=== PATIENT | female | born 1950 | race Asian ===

== ENCOUNTER 2016-07-11 11:00 | Outpatient (CLI) | payer MEDICARE, OTHER | END 2016-07-11 11:01 | disposition home or self-care (01) | DX: E11.9 Type 2 diabetes mellitus without complications (principal); E78.5 Hyperlipidemia, unspecified ==

== ENCOUNTER 2016-09-06 13:53 | Outpatient (CLI) | payer MEDICARE, OTHER | END 2016-09-06 13:54 | disposition home or self-care (01) | DX: Z12.31 Encounter for screening mammogram for malignant neoplasm of breast (principal) ==

== ENCOUNTER 2016-11-21 11:05 | Outpatient (CLI) | payer MEDICARE, OTHER ==
[2016-11-21 19:41] LABS: HEMOGLOBIN A1C 0.88 g/dL
[2016-11-21 19:45] LABS: CALCIUM 9.3 mg/dL (8.5-10.3); CREATININE 0.7 mg/dL (0.4-1.0); POTASSIUM 3.3 mmol/L (3.5-5.0)
== END 2016-11-21 11:06 | disposition home or self-care (01) ==
LOC: LAB.WCP 11:05
PROVIDERS: ATTEND Family Medicine
DX: E11.9 Type 2 diabetes mellitus without complications (principal)
CPT/HCPCS: 36415; 80048; 83036

== ENCOUNTER 2016-11-30 14:54 | Outpatient (CLI) | payer MEDICARE, OTHER ==
--- NOTE | 2016-12-01 11:28 | Ultrasound Report ---
EXAM: PELVIC ULTRASOUND EXAM DATE: 11/30/2016 04:16 PM. CLINICAL HISTORY: PELVIC PAIN. COMPARISON: None. TECHNIQUE: Realtime transabdominal pelvic scan performed to identify the uterus and adnexa and as an overview of other pelvic structures, followed by transvaginal scan to provide greater detail of the u terus and adnexa, with static image documentation. FINDINGS: Uterus: 4.6 x 3.5 x 2.5 cm. Anteverted position. Normal overall size and echotexture. Masses: None. Endometrium: 3.7 mm. Normal. Cervix: Unremarkable. Right Ovary: 1.6 x 1.3 x 1.2 cm. Normal echotexture and blood flow. Left Ovary: Not well-seen. No obvious masses seen in the left adnexa. Free Fluid: Small free fluid in the pelvic cul-de-sac. Other: None. IMPRESSION: Limited evaluation secondary to nonvisualization of left ovary. Small free fluid in the p elvic cul-de-sac, otherwise unremarkable exam. [facility] Referring Provider Line: [phone] SITE ID: [id number]
== END 2016-11-30 14:55 | disposition home or self-care (01) ==
LOC: DI 14:54
PROVIDERS: ATTEND Family Medicine
DX: R10.2 Pelvic and perineal pain (principal)
CPT/HCPCS: 76830; 76856

== ENCOUNTER 2016-12-10 10:10 | Outpatient (CLI) | payer MEDICARE, OTHER ==
[2016-12-10] MEDS ORDERED: BARIUM SULFATE 135 ML BOTTLE PO ONE (10:51)
[2016-12-10] MEDS ORDERED: BARIUM SULFATE 176 GM BOTTLE PO ONE (10:51)
--- NOTE | 2016-12-10 12:48 | XRAY Report ---
DOUBLE CONTRAST UPPER GI: 12/10/2016 CLINICAL INDICATION: Reflux. FINDINGS: Initial auto body painter view of the abdomen demonstrates a normal bowel gas pattern. The esophagus i s normal in caliber and contractility. No esophageal ulceration, mass lesion, or stricturing is prese nt. A small sliding hiatal hernia is noted, which produced gastroesophageal reflux during the course of the study. The stomach, otherwise, demonstrates a normal fold pattern. No gastric ulceration or ma ss lesion is identified. The duodenal cap distends normally. The duodenal C-loop is unremarkable. A 1 3 mm barium pill passed freely through the esophagus and into the stomach. IMPRESSION: SMALL SLIDING HIATAL HERNIA, PRODUCING REFLUX. NO EVIDENCE OF ULCERATION OR MASS LESION. FLUOROSCOPY TIME: 3 MINUTES 38 SECONDS; 23 SPOT IMAGES OBTAINED. JOB #: [id number] EXT JOB #:[id number]
== END 2016-12-10 10:11 | disposition home or self-care (01) ==
LOC: DI 10:10
PROVIDERS: ATTEND Family Medicine
DX: K44.9 Diaphragmatic hernia without obstruction or gangrene (principal); K21.9 Gastro-esophageal reflux disease without esophagitis
CPT/HCPCS: 74247; A9270

== ENCOUNTER 2017-03-16 13:37 | Emergency (ER) | payer MEDICARE, OTHER ==
[2017-03-16] MEDS ORDERED: TETANUS/DIPHTHERIA/PERTUSSIS 0.5 ML SYRINGE IM ONE ×2 (13:58→14:13)
[2017-03-16] MEDS ORDERED: cephALEXin 250 MG CAPSULE PO STA (13:58)
--- NOTE | 2017-03-16 14:00 | ED Physician Documentation ---
PD HPI UPPER EXT INJURY - Stated complaint Stated Complaint: L THUMB INJURY - Chief complaint Chief Complaint: Wound - History obtained from History obtained from: Patient - History of Present Illness Location: Other (She sustained a laceration on her left thumb 5 days ago from a castings trimmer and now has a little bit of increased pain and some redness and swelling. 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 HEENT: Cataracts - Present Medications Home Medications: Ambulatory Orders Medication Instructions Recorded Confirmed Cephalexin [Keflex] 500 mg PO QID #28 capsule 03/16/17 - Allergies Allergies/Adverse Reactions: Allergies Allergy/AdvReac Type Severity Reaction Status Date / Time codeine [Codeine] Allergy Intermediate Nausea Verified 03/16/17 13:48 oxycodone HCl * [From Tylox] AdvReac Mild Nausea Verified 03/16/17 13:48 - Social History Does the pt smoke?: No Smoking Status: Never smoker Does the pt drink ETOH?: Yes Does the pt have substance abuse?: No - Immunizations Immunizations are current?: No PD ED PE NORMAL - Vitals Vital signs reviewed: Yes - General General: Alert and oriented X 3, No acute distress - Extremities Extremities: Other (She has a 1 cm laceration on the pulp of the left thumb with mild surrounding cellulitis but no limitation in range of motion or neurovascular status.) - Neuro Neuro: Alert and oriented X 3, Normal speech - Psych Psych: Normal mood, Normal affect Results - Vitals Vitals: Vital Signs - 24 hr 03/16/17 13:45 Temperature 36.3 C L Heart Rate 80 Respiratory 14 Rate Blood Pressure 128/80 O2 Saturation 100 Oxygen O2 Source Room air Departure - Departure Disposition: 01 Home, Self Care Clinical Impression: Infected laceration Condition: Good Record reviewed to determine appropriate education?: Yes Instructions: ED Laceration Repair Infec Prescriptions: Cephalexin [Keflex] 500 mg PO QID #28 capsule Comments: You can wash it briefly with soap and water and then apply a dry Band-Aid after patting it dry. Return if redness or swelling worsens.
[2017-03-16] MEDS ORDERED: cephALEXin 250 MG CAPSULE PO ONE (14:13)
[2017-03-16 14:31] VITALS: BP 116/74
[2017-03-16] MEDS ORDERED: SULFAMETH/TRIMETH DS 800/160 MG TABLET PO ONE (15:14)
[2017-03-16] MEDS ORDERED: PHENAZOPYRIDINE 100 MG TABLET PO ONE (15:14)
== END 2017-03-16 14:28 | disposition home or self-care (01) ==
LOC: ED 13:37
DX: S61.012A Laceration without foreign body of left thumb without damage to nail, initial encounter (principal); L03.012 Cellulitis of left finger; W29.3XXA Contact with powered garden and outdoor hand tools and machinery, initial encounter; Z23 Encounter for immunization; E11.9 Type 2 diabetes mellitus without complications
CPT/HCPCS: 90471; 90715; 99283; A9270

== ENCOUNTER 2017-07-11 11:50 | Outpatient (CLI) | payer MEDICARE, OTHER ==
[2017-07-11 19:16] LABS: BASOPHILS % (AUTO) 0.4 %; EOSINOPHILS # (AUTO) 0.3 10^3/uL (0.0-0.7); EOSINOPHILS % (AUTO) 2.7 %; HGB - HEMOGLOBIN 14.2 g/dL (12.0-16.0); LYMPHOCYTES # (AUTO) 2.5 10^3/uL (1.5-3.5); MEAN CORPUSCULAR HEMOGLOBIN 29.7 pg (27.0-31.0); MEAN CORPUSCULAR HGB CONC 33.2 g/dL (32.0-36.0); MEAN CORPUSCULAR VOLUME 89.2 fL (81.0-99.0); MEAN PLATELET VOLUME 7.3 fL (7.9-10.8); MONOCYTES # (AUTO) 1.1 10^3/uL (0.0-1.0); MONOCYTES % (AUTO) 10.5 %; NEUTROPHILS # (AUTO) 6.2 10^3/uL (1.5-6.6); NEUTROPHILS % (AUTO) 61.4 %; PLT - PLATELET COUNT 263 10^3/uL (130-450); RED BLOOD COUNT 4.79 10^6/uL (4.20-5.40); RED CELL DISTRIBUTION WIDTH 12.6 % (12.0-15.0); WHITE BLOOD COUNT 10.1 x10^3/uL (4.8-10.8)
[2017-07-11 19:32] LABS: ALBUMIN 4.6 g/dL (3.2-5.5); ALBUMIN/GLOBULIN RATIO 1.1 (1.0-2.2); ALKALINE PHOSPHATASE 65 IU/L (42-121); ALT ALANINE AMINOTRANSFERASE 11 IU/L (10-60); AST ASPARTATE AMINOTRANSFERASE 25 IU/L (10-42); BILIRUBIN,TOTAL 0.6 mg/dL (0.2-1.0); BUN - BLOOD UREA NITROGEN 15 mg/dL (6-20); CALCIUM 9.2 mg/dL (8.5-10.3); CARBON DIOXIDE - CO2 27 mmol/L (21-32); CHLORIDE 95 mmol/L (101-111); CHOL/HDL RATIO 2.6 (<4.4); CHOLESTEROL 101 mg/dL; CREATININE 0.8 mg/dL (0.4-1.0); GFR - MDRD 71 (>89); GLUCOSE 194 mg/dL (70-100); HDL CHOLESTEROL 39 mg/dL; LDL CHOLESTEROL,CALCULATED 34 mg/dL; LDL/HDL RATIO 0.9 (<4.4); SODIUM 132 mmol/L (135-145); TOTAL PROTEIN 8.9 g/dL (6.7-8.2); VLDL CHOLESTEROL 28 mg/dL
[2017-07-11 19:33] LABS: THYROID STIMULATING HORMONE 2.72 uIU/mL (0.34-5.60)
[2017-07-11 20:02] LABS: HB2 TOTAL 15.5 g/dL; HEMOGLOBIN A1C 0.91 g/dL; HEMOGLOBIN A1C % 7.5 % (4.6-6.2)
== END 2017-07-11 11:51 | disposition home or self-care (01) ==
LOC: LAB.WCP 11:50
PROVIDERS: ATTEND Family Medicine
DX: E11.40 Type 2 diabetes mellitus with diabetic neuropathy, unspecified (principal)
CPT/HCPCS: 36415; 80053; 80061; 82043; 82607; 83036; 84443; 85025

== ENCOUNTER 2017-09-17 14:09 | Outpatient (CLI) | payer MEDICARE, OTHER ==
[2017-09-17 14:29] LABS: CREATININE 0.7 mg/dL (0.4-1.0)
[2017-09-17] MEDS ORDERED: IOPAMIDOL-300 100 ML VIAL ONE (15:28)
[2017-09-17] MEDS ORDERED: IOPAMIDOL-300 100 ML VIAL IVP ONE (15:40)
--- NOTE | 2017-09-18 13:42 | CT Report ---
EXAM: CT SOFT TISSUE NECK WITH CONTRAST. EXAM DATE: 09/17/2017 03:40 PM. HISTORY: Neck mass. Patient reports left parotid swelling. COMPARISONS: None available. TECHNIQUE: Routine soft tissue neck CT protocol. Reconstructions: Coronal and sagittal. IV contrast: 80 cc Isovue-370. In accordance with CT protocol optimization, one or more of the following dose reduction techniques w ere utilized for this exam: automated exposure control, adjustment of mA and/or KV based on patient s ize, or use of iterative reconstructive technique. FINDINGS: The left parotid gland enhances to a greater degree than the right parotid gland. This involves the s uperficial and deep lobe which are enlarged relative to the right parotid gland. A discrete fluid col lection or mass is not identified in the left parotid gland. No significant inflammatory change is pr esent in the fat adjacent to the left parotid gland. The right parotid gland and both submandibular glands have a normal CT appearance. No calcification or mass is identified in the floor of mouth. The epiglottis is not thickened. The epiglottic folds are symmetric. No mass is present in the nasoph arynx. The parapharyngeal fat is symmetric. No subglottic stenosis is present. The thyroid gland is not enlarged. 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 No bulky lymphadenop athy is seen in the visualized upper mediastinum. Nonenlarged lymph nodes are seen bilaterally along the internal jugular chain. A 5 mm short axis lymp h node is seen on the right in the lower neck on image 91 posterior to the sternocleidomastoid muscle . Nonenlarged posterior triangle lymph nodes are seen bilaterally. The lacrimal glands are symmetric in size. No mass is present in either orbit. No enhancing mass is identified in the brain parenchyma. A posterior protrusion of disk and osteophyte is seen at C6-C7. No suspicious lytic or blastic region is seen in the cervical vertebral bodies. Scattered facet hyper trophy is present. Right frontal sinus, bilateral ethmoid air cell and bilateral maxillary sinus mucosal thickening is p resent. No suspicious spiculated mass is seen in either lung apex. IMPRESSION: 1. The left parotid gland is diffusely enlarged and enhances to a greater degree relative to the righ t parotid gland. This could reflect parotitis. No abscess or mass is identified in the left parotid g land. 2. Paranasal sinus mucosal thickening is seen [facility] Referring Provider Line: [phone] SITE ID: [id number]
== END 2017-09-17 14:10 | disposition home or self-care (01) ==
LOC: LAB 14:09 → DI 14:10
PROVIDERS: ATTEND Otolaryngology Facial Plastic Surgery
DX: K11.1 Hypertrophy of salivary gland (principal); K11.23 Chronic sialoadenitis; R22.1 Localized swelling, mass and lump, neck
CPT/HCPCS: 36415; 70491; 82565; Q9967

== ENCOUNTER 2018-05-13 13:11 | Outpatient (CLI) | payer MEDICARE, OTHER ==
--- NOTE | 2018-05-14 11:29 | DEXA Report ---
Reason: POST MENOPAUSAL Procedure Date: 05/13/2018 Accession Number: [id number] / [id number] Procedure: DEX - Dexa Spine and/or Hip CPT Code: FULL RESULT: EXAM: Dexa Spine and/or Hip DATE: 05/13/2018 1:40 PM CLINICAL HISTORY: POST MENOPAUSAL TECHNIQUE: Dual energy x-ray absorptiometry (DXA) was performed on a HOTEL Top-Level Domain System. Regions measured are the AP Spine, femoral neck, and if needed forearm. COMPARISON: None. In accordance with the International Society for Clinical Densitometry (ISCD) guidelines, data from previous exams may be reanalyzed using current recommendations and techniques. This is done to allow a more accurate basis for comparison with the current study. FINDINGS: The data for the lumbar spine is as follows: BMD (g/cm/cm) T-SCORE Z-SCORE REGION L1 0.950 -1.5 0.2 L2 1.082 -1.0 0.7 L3 1.052 -1.2 0.4 L4 1.133 -0.6 1.1 TOTAL 1.060 -1.0 0.7 NOTE: All evaluable vertebrae are used for classification The data for the hip is as follows: BMD (g/cm/cm) T-SCORE Z-SCORE REGION Neck 0.928 -0.8 0.9 TOTAL 0.984 -0.2 1.2 NOTE: The femoral neck or total proximal femur, whichever is lowest, is used for classification. IMPRESSION: THE WHO CLASSIFICATION BASED ON THE INTERNATIONAL REFERENCE STANDARD IS NORMAL. THE FRACTURE RISK IS NOT INCREASED. RECOMMENDATION: Patients with diagnosis of osteoporosis or osteopenia should have regular bone mineral density assessment. For those eligible for Medicare, routine testing is allowed once every 2 years. Testing frequency can be increased for patients who have rapidly progressing disease or for those who are receiving medical therapy to restore bone mass. COMMENT: World Health Organization (WHO) definitions for osteoporosis and osteopenia: NORMAL BMD: T-score at -1.0 or higher, fracture risk is low OSTEOPENIA BMD: T-score between -1.0 and -2.5, fracture risk is increased. OSTEOPOROSIS BMD: T-score at -2.5 or lower, fracture risk is high. National Osteoporosis Foundation recommends: 1. Obtain adequate dietary calcium (at least 1200 mg per day) and vitamin D (400-800 international units per day). 2. Participate, as appropriate, in regular weightbearing and muscle-strengthening exercise. 3. Avoid tobacco use and reduce alcohol and caffeine intake. 4. For more detailed information see the website at www.NOF.org.
== END 2018-05-13 13:12 | disposition home or self-care (01) ==
LOC: DI 13:11
PROVIDERS: ATTEND Family Medicine
DX: Z78.0 Asymptomatic menopausal state (principal); Z13.820 Encounter for screening for osteoporosis
CPT/HCPCS: 77080

== ENCOUNTER 2018-09-23 11:08 | Outpatient (CLI) | payer MEDICARE, OTHER ==
[2018-09-23 19:10] LABS: BASOPHILS % (AUTO) 0.9 %; EOSINOPHILS # (AUTO) 0.2 10^3/uL (0.0-0.7); EOSINOPHILS % (AUTO) 3.6 %; LYMPHOCYTES # (AUTO) 2.1 10^3/uL (1.5-3.5); LYMPHOCYTES % (AUTO) 36.9 %; MEAN CORPUSCULAR HEMOGLOBIN 29.9 pg (27.0-31.0); MEAN CORPUSCULAR HGB CONC 32.9 g/dL (32.0-36.0); MEAN CORPUSCULAR VOLUME 90.8 fL (81.0-99.0); MEAN PLATELET VOLUME 6.9 fL (7.9-10.8); MONOCYTES # (AUTO) 0.4 10^3/uL (0.0-1.0); MONOCYTES % (AUTO) 7.7 %; NEUTROPHILS # (AUTO) 2.9 10^3/uL (1.5-6.6); NEUTROPHILS % (AUTO) 50.9 %; PLT - PLATELET COUNT 268 10^3/uL (130-450); RED BLOOD COUNT 4.35 10^6/uL (4.20-5.40); RED CELL DISTRIBUTION WIDTH 12.9 % (12.0-15.0); WHITE BLOOD COUNT 5.7 x10^3/uL (4.8-10.8)
[2018-09-23 19:25] LABS: ALKALINE PHOSPHATASE 44 IU/L (42-121); ALT ALANINE AMINOTRANSFERASE < 10 IU/L (10-60); AST ASPARTATE AMINOTRANSFERASE 22 IU/L (10-42); BILIRUBIN,TOTAL 0.6 mg/dL (0.2-1.0); BUN - BLOOD UREA NITROGEN 17 mg/dL (6-20); CALCIUM 8.9 mg/dL (8.5-10.3); CARBON DIOXIDE - CO2 28 mmol/L (21-32); CHLORIDE 96 mmol/L (101-111); CHOL/HDL RATIO 2.2 (<4.4); CHOLESTEROL 91 mg/dL; CREATININE 0.7 mg/dL (0.4-1.0); GFR - MDRD 83 (>89); GLUCOSE 144 mg/dL (70-100); HDL CHOLESTEROL 41 mg/dL; LDL CHOLESTEROL,CALCULATED 22 mg/dL; LDL/HDL RATIO 0.5 (<4.4); SODIUM 132 mmol/L (135-145); TOTAL PROTEIN 7.9 g/dL (6.7-8.2); VLDL CHOLESTEROL 28 mg/dL
[2018-09-23 19:51] LABS: HB2 TOTAL 13.9 g/dL; HEMOGLOBIN A1C 0.72 g/dL; HEMOGLOBIN A1C % 6.9 % (4.6-6.2)
[2018-09-24 15:07] LABS: HEPATITIS C ANTIBODY NON-REACTIVE (NON-REACTIVE)
== END 2018-09-23 11:09 | disposition home or self-care (01) ==
LOC: LAB.WCP 11:08
PROVIDERS: ATTEND Family Medicine
DX: E11.9 Type 2 diabetes mellitus without complications (principal); Z11.59 Encounter for screening for other viral diseases
CPT/HCPCS: 36415; 80053; 80061; 82043; 83036; 83721; 84443; 85025; 86803

== ENCOUNTER 2018-10-14 08:00 | Outpatient (CLI) | payer MEDICARE, OTHER | END 2018-10-14 23:59 | disposition home or self-care (01) | LOC: LAB.WCP 08:00 | PROVIDERS: ATTEND Family Medicine | DX: R21 Rash and other nonspecific skin eruption (principal) | CPT/HCPCS: 36415; 86060 ==

== ENCOUNTER 2018-11-21 08:00 | Outpatient (CLI) | payer MEDICARE, OTHER ==
[2018-11-21 18:56] LABS: BASOPHILS % (AUTO) 0.8 %; EOSINOPHILS # (AUTO) 0.2 10^3/uL (0.0-0.7); EOSINOPHILS % (AUTO) 3.3 %; LYMPHOCYTES # (AUTO) 1.8 10^3/uL (1.5-3.5); LYMPHOCYTES % (AUTO) 35.8 %; MEAN CORPUSCULAR HEMOGLOBIN 29.6 pg (27.0-31.0); MEAN CORPUSCULAR HGB CONC 33.2 g/dL (32.0-36.0); MEAN CORPUSCULAR VOLUME 89.1 fL (81.0-99.0); MONOCYTES # (AUTO) 0.5 10^3/uL (0.0-1.0); MONOCYTES % (AUTO) 10.8 %; NEUTROPHILS # (AUTO) 2.4 10^3/uL (1.5-6.6); NEUTROPHILS % (AUTO) 49.3 %; PLT - PLATELET COUNT 261 10^3/uL (130-450); RED BLOOD COUNT 4.73 10^6/uL (4.20-5.40); RED CELL DISTRIBUTION WIDTH 12.8 % (12.0-15.0); WHITE BLOOD COUNT 4.9 x10^3/uL (4.8-10.8)
[2018-11-21 19:17] LABS: ALBUMIN 4.4 g/dL (3.2-5.5); ALBUMIN/GLOBULIN RATIO 1.3 (1.0-2.2); ALKALINE PHOSPHATASE 49 IU/L (42-121); ALT ALANINE AMINOTRANSFERASE 11 IU/L (10-60); AST ASPARTATE AMINOTRANSFERASE 26 IU/L (10-42); BILIRUBIN,TOTAL 0.7 mg/dL (0.2-1.0); BUN - BLOOD UREA NITROGEN 12 mg/dL (6-20); CALCIUM 9.4 mg/dL (8.5-10.3); CARBON DIOXIDE - CO2 28 mmol/L (21-32); CHLORIDE 100 mmol/L (101-111); CREATININE 0.7 mg/dL (0.4-1.0); GFR - MDRD 83 (>89); GLUCOSE 140 mg/dL (70-100); SODIUM 138 mmol/L (135-145); TOTAL PROTEIN 7.9 g/dL (6.7-8.2)
[2018-11-21 19:24] LABS: CRP - C-REACTIVE PROTEIN < 1.0 mg/dL (0-1.0)
== END 2018-11-21 08:01 | disposition home or self-care (01) ==
LOC: LAB.WCP 08:00
PROVIDERS: ATTEND Specialist/Technologist Athletic Trainer
DX: M35.01 Sjogren syndrome with keratoconjunctivitis (principal)
CPT/HCPCS: 36415; 80053; 85025; 85651; 86140; 86160

== ENCOUNTER 2018-12-08 15:39 | Outpatient (CLI) | payer MEDICARE, OTHER ==
--- NOTE | 2018-12-09 08:35 | Mammography Report ---
Reason: SCREENING MAMMOGRAM FOR BREAST CANCER Procedure Date: 12/08/2018 Accession Number: [id number] / [id number] Procedure: DOMO - Screening Mammo w/Haile CPT Code: FULL RESULT: EXAM: Screening Mammo w/Haile DATE: 12/08/2018 4:19 PM CLINICAL HISTORY: Screening encounter. No reported risk factors. TECHNIQUE: (B) - Bilateral CC, laterally exaggerated CC, MLO views were obtained. COMPARISON: 10/01/2016 through 08/04/2014. PARENCHYMAL PATTERN: (A) - The breast(s) demonstrate(s) scattered fibroglandular densities. FINDINGS: Coarse typically benign calcifications are redemonstrated. There are no suspicious masses, calcifications, or areas of distortion. IMPRESSION: Benign findings. BI-RADS category 2. RECOMMENDATION: (ANNUAL) - Recommend routine annual screening mammography. BI-RADS CATEGORY: (2) - Benign Findings. STANDARD QUALIFYING STATEMENTS: 1. This examination was not reviewed with the aid of Computer-Aided Detection (CAD). 2. A negative or benign imaging report should not preclude biopsy if clinically suspicious findings are present. 3. Dense breasts may obscure an underlying neoplasm. 4. This examination was reviewed with the aid of 3D breast imaging (tomosynthesis).
== END 2018-12-08 15:40 | disposition home or self-care (01) ==
LOC: DI 15:39
PROVIDERS: ATTEND Family Medicine
DX: Z12.31 Encounter for screening mammogram for malignant neoplasm of breast (principal)
CPT/HCPCS: 77063; 77067

== ENCOUNTER 2019-07-14 08:00 | Outpatient (CLI) | payer MEDICARE, OTHER ==
[2019-07-14 19:14] LABS: CALCIUM 9.4 mg/dL (8.5-10.3); CREATININE 0.9 mg/dL (0.4-1.0)
[2019-07-14 20:22] LABS: HB2 TOTAL 14.1 g/dL; HEMOGLOBIN A1C 0.78 g/dL; HEMOGLOBIN A1C % 7.2 % (4.6-6.2)
== END 2019-07-14 23:59 | disposition home or self-care (01) ==
LOC: LAB.WCP 08:00
PROVIDERS: ATTEND Family Medicine
DX: E11.9 Type 2 diabetes mellitus without complications (principal)
CPT/HCPCS: 36415; 80048; 83036

== ENCOUNTER 2020-03-07 08:00 | Outpatient (CLI) | payer MEDICARE, OTHER ==
[2020-03-07 18:50] LABS: ALBUMIN 4.5 g/dL (3.2-5.5); ALBUMIN/GLOBULIN RATIO 1.2 (1.0-2.2); ALKALINE PHOSPHATASE 60 IU/L (42-121); ALT ALANINE AMINOTRANSFERASE 14 IU/L (10-60); AST ASPARTATE AMINOTRANSFERASE 30 IU/L (10-42); BILIRUBIN,TOTAL 0.8 mg/dL (0.2-1.0); BUN - BLOOD UREA NITROGEN 24 mg/dL (6-20); CALCIUM 9.3 mg/dL (8.5-10.3); CARBON DIOXIDE - CO2 27 mmol/L (21-32); CHLORIDE 97 mmol/L (101-111); CHOL/HDL RATIO 2.6 (<4.4); CHOLESTEROL 105 mg/dL; CREATININE 0.8 mg/dL (0.4-1.0); GLUCOSE 147 mg/dL (70-100); HDL CHOLESTEROL 41 mg/dL; LDL CHOLESTEROL,CALCULATED 49 mg/dL; LDL/HDL RATIO 1.2 (<4.4); SODIUM 133 mmol/L (135-145); TOTAL PROTEIN 8.2 g/dL (6.7-8.2); VLDL CHOLESTEROL 15 mg/dL
[2020-03-07 20:38] LABS: HEMOGLOBIN A1c% 7.7 % (4.27-6.07)
== END 2020-03-07 23:59 | disposition home or self-care (01) ==
LOC: LAB.WCP 08:00
PROVIDERS: ATTEND Family Medicine
DX: E11.9 Type 2 diabetes mellitus without complications (principal)
CPT/HCPCS: 36415; 80053; 80061; 83036; 83721

== ENCOUNTER 2020-11-16 08:00 | Outpatient (CLI) | payer MEDICARE, OTHER ==
[2020-11-16 17:59] LABS: BASOPHILS % (AUTO) 0.5 %; EOSINOPHILS # (AUTO) 0.2 10^3/uL (0.0-0.7); EOSINOPHILS % (AUTO) 3.3 %; HCT - HEMATOCRIT 44.7 % (37.0-47.0); LYMPHOCYTES # (AUTO) 2.3 10^3/uL (1.5-3.5); LYMPHOCYTES % (AUTO) 39.9 %; MEAN CORPUSCULAR HEMOGLOBIN 28.8 pg (27.0-31.0); MEAN CORPUSCULAR HGB CONC 31.3 g/dL (32.0-36.0); MEAN PLATELET VOLUME 9.3 fL (7.9-10.8); MONOCYTES # (AUTO) 0.4 10^3/uL (0.0-1.0); MONOCYTES % (AUTO) 7.7 %; NEUTROPHILS # (AUTO) 2.8 10^3/uL (1.5-6.6); NEUTROPHILS % (AUTO) 48.3 %; PLT - PLATELET COUNT 225 10^3/uL (130-450); RED BLOOD COUNT 4.86 10^6/uL (4.20-5.40); RED CELL DISTRIBUTION WIDTH 12.5 % (12.0-15.0); WHITE BLOOD COUNT 5.7 x10^3/uL (4.8-10.8)
[2020-11-16 18:51] LABS: ALBUMIN 4.2 g/dL (3.2-5.5); ALBUMIN/GLOBULIN RATIO 1.1 (1.0-2.2); ALKALINE PHOSPHATASE 55 IU/L (42-121); ALT ALANINE AMINOTRANSFERASE 11 IU/L (10-60); AST ASPARTATE AMINOTRANSFERASE 26 IU/L (10-42); BILIRUBIN,TOTAL 0.7 mg/dL (0.2-1.0); BUN - BLOOD UREA NITROGEN 24 mg/dL (6-20); CALCIUM 9.3 mg/dL (8.5-10.3); CARBON DIOXIDE - CO2 29 mmol/L (21-32); CHLORIDE 100 mmol/L (101-111); CHOL/HDL RATIO 2.6 (<4.4); CHOLESTEROL 123 mg/dL; CREATININE 0.8 mg/dL (0.4-1.0); GFR - MDRD 71 (>89); GLUCOSE 197 mg/dL (70-100); HDL CHOLESTEROL 48 mg/dL; LDL CHOLESTEROL,CALCULATED 48 mg/dL; POTASSIUM 4.1 mmol/L (3.5-5.0); SODIUM 137 mmol/L (135-145); TOTAL PROTEIN 8.1 g/dL (6.7-8.2); TRIGLYCERIDES 136 mg/dL; VLDL CHOLESTEROL 27 mg/dL
[2020-11-16 18:53] LABS: THYROID STIMULATING HORMONE 2.14 uIU/mL (0.34-5.60)
[2020-11-16 19:40] LABS: ESTIMATED AVERAGE GLUCOSE 186 mg/dL (70-100); HEMOGLOBIN A1c% 8.1 % (4.27-6.07)
== END 2020-11-16 23:59 | disposition home or self-care (01) ==
LOC: LAB.WCP 08:00
PROVIDERS: ATTEND Family Medicine
DX: E11.9 Type 2 diabetes mellitus without complications (principal)
CPT/HCPCS: 36415; 80053; 80061; 83036; 83721; 84443; 85025

== ENCOUNTER 2021-03-02 08:00 | Outpatient (CLI) | payer MEDICARE, OTHER ==
[2021-03-02 19:13] LABS: CALCIUM 9.1 mg/dL (8.5-10.3); CREATININE 0.6 mg/dL (0.4-1.0)
[2021-03-02 20:22] LABS: ESTIMATED AVERAGE GLUCOSE 177 mg/dL (70-100); HEMOGLOBIN A1c% 7.8 % (4.27-6.07)
== END 2021-03-02 23:59 | disposition home or self-care (01) ==
LOC: LAB.WCP 08:00
PROVIDERS: ATTEND Family Medicine
DX: E11.9 Type 2 diabetes mellitus without complications (principal)
CPT/HCPCS: 36415; 80048; 82043; 83036

== ENCOUNTER 2021-08-08 10:19 | Day surgery (SDC) | payer MEDICARE, OTHER ==
[2021-08-08] MEDS ORDERED: LACTATED RINGERS 1,000 ML IV ONE (10:50)
--- NOTE | 2021-08-08 11:17 | ANESTHESIA ---
Pre-Anesthesia VS, & Labs - Diagnosis hx of polyps - Procedure colonoscopy Vital Signs: Temp Pulse Resp BP Pulse Ox 36.2 C L 86 15 129/70 99 08/08/21 10:40 08/08/21 10:40 08/08/21 10:40 08/08/21 10:40 08/08/21 10:40 Height: 5 ft 2 in Weight (kg): 63 kg Body Mass Index: 25.4 BMI Classification: Overweight - NPO >8 hours - Is Patient ?: Not Applicable - Lab Results Current Lab Results: Laboratory Tests 08/08/21 10:45: POC Whole Bld Glucose 181 H Home Medications and Allergies Home Medications: Ambulatory Orders Calcium Carbonate [Calcium] 600 mg PO BID 08/04/21 Cholecalciferol [Vitamin D3] 25 mcg PO DAILY 08/04/21 Dulaglutide [Trulicity] 1.5 mg SQ OAW 08/04/21 Ibuprofen [Motrin] 600 mg PO Q6H PRN 08/04/21 Loratadine [Allergy Relief] 10 mg PO DAILY PRN 08/04/21 Omeprazole 20 mg PO DAILY 08/04/21 Pilocarpine HCl 5 mg PO QID 08/04/21 Triamcinolone Acetonide 0.1% [Triamcinolone Acetonide] 1 applic TOP PRN PRN 08/04/21 Zolpidem Tartrate [Ambien] 10 mg PO QPM PRN 08/04/21 Dapagliflozin Propanediol [Farxiga] 10 mg PO DAILY 03/16/17 Ezetimibe/Simvastatin [Vytorin 10-10 mg Tablet] 1 tab PO DAILY 03/16/17 glipiZIDE [Glipizide] 10 mg PO BID 03/16/17 metFORMIN [Glucophage] 1,000 mg PO DAILY 03/16/17 Calcium Carbonate [Calcium] 600 mg PO BID 08/04/21 Cholecalciferol [Vitamin D3] 25 mcg PO DAILY 08/04/21 Dulaglutide [Trulicity] 1.5 mg SQ OAW 08/04/21 Ibuprofen [Motrin] 600 mg PO Q6H PRN 08/04/21 Loratadine [Allergy Relief] 10 mg PO DAILY PRN 08/04/21 Omeprazole 20 mg PO DAILY 08/04/21 Pilocarpine HCl 5 mg PO QID 08/04/21 Triamcinolone Acetonide 0.1% [Triamcinolone Acetonide] 1 applic TOP PRN PRN 08/04/21 Zolpidem Tartrate [Ambien] 10 mg PO QPM PRN 08/04/21 Allergies/Adverse Reactions: Allergies Allergy/AdvReac Type Severity Reaction Status Date / Time codeine [Codeine] Allergy Intermediate Nausea Verified 03/16/17 13:48 oxycodone HCl * [From Tylox] AdvReac Mild Nausea Verified 03/16/17 13:48 Anes History & Medical History - Anesthetic History Anesthesia Complications: reports: No previous complications Family history of Anesthesia Complications: Denies Family history of Malignant Hyperthermia: Denies - Medical History Cardiovascular: reports: High cholesterol Pulmonary: reports: None, Other (sjrogren's) Gastrointestinal: reports: GERD, Colon polyps Urinary: reports: None Musculoskeletal: reports: Osteoporosis Endocrine/Autoimmune: reports: Type 2 diabetes Skin: reports: None Smoking Status: Never smoker - Surgical History General: reports: Colonoscopy Eyes Ears Nose Throat (EENT): reports: Cataracts Gynecologic: Exam General: Alert, Oriented x3 Dental: Partials Upper Mouth Openin Fingerbreadth Neck Mobility: Normal Mallampati classification: III Thyromental Distance: 4-6 cm Respiratory: Lungs clear Cardiovascular: Regular rate Plan Anesthesia Type: Total IV Consent for Procedure(s) Verified and Reviewed: Yes Code Status: Attempt Resuscitation ASA classification: 3-Severe systemic disease Is this case an emergency?: No
[2021-08-08] MEDS ORDERED: GLYCOPYRROLATE 1 MG/5 ML VIAL ONE (12:12)
[2021-08-08] MEDS ORDERED: PROPOFOL 200 MG/20 ML VIAL IVP ONE (12:12)
[2021-08-08] MEDS ORDERED: LACTATED RINGERS 700 ML IV ONE (12:18)
[2021-08-08 12:43] VITALS: BP 112/76
--- NOTE | 2021-08-08 17:11 | ANESTHESIA POST OP EVALUATION ---
Anesthesia Post Eval - Post Anesthesia Eval Vitals: Last Vital Signs Temp 36.2 C L 08/08/21 12:40 Pulse 91 08/08/21 12:40 Resp 19 08/08/21 12:40 BP 112/76 08/08/21 12:40 Pulse Ox 98 08/08/21 12:40 CV Function Including HR & BP: Stable Pain Control: Satisfactory Nausea & Vomiting: Negative Mental Status: Baseline Respiratory Status: Airway Patent Hydration Status: Satisfactory Anesthesia Complications: None
== END 2021-08-08 10:20 | disposition home or self-care (01) ==
LOC: SDS 10:19
PROVIDERS: ATTEND Surgery
DX: Z12.11 Encounter for screening for malignant neoplasm of colon (principal); Z86.010 Personal history of colon polyps; K64.4 Residual hemorrhoidal skin tags; K64.8 Other hemorrhoids; Q43.8 Other specified congenital malformations of intestine; E11.9 Type 2 diabetes mellitus without complications; Z79.84 Long term (current) use of oral hypoglycemic drugs; Z79.899 Other long term (current) drug therapy
CPT/HCPCS: G0105; J7120

== ENCOUNTER 2021-10-23 15:45 | Emergency (ER) | payer MEDICARE, OTHER ==
[2021-10-23] MEDS ORDERED: ONDANSETRON ODT 4 MG TABLET TL STA (15:56)
[2021-10-23] MEDS ORDERED: MECLIZINE 12.5 MG TABLET PO STA (16:19)
--- NOTE | 2021-10-23 16:53 | ED Physician Documentation ---
History of Present Illness - Stated complaint Stated Complaint: DIZZY,VOMIT - Chief complaint Chief Complaint: Neuro - History obtained from History obtained from: Patient - History of Present Illness Timing: Today Pain level max: 0 Pain level now: 0 - Additonal information Additional information: 71-year-old female presents to the emergency department with sudden onset of vertigo today. Described as the room spinning around her. Worse with moving her head, better with lying still with her eyes closed. Has had nausea and vomiting with this as well. No other focal neurological deficits. No numbness or weakness. No tingling. No head injury. No recent illnesses. History of Sjogren's syndrome Review of Systems Ten Systems: 10 systems reviewed and negative Constitutional: denies: Fever, Chills Ears: denies: Ear pain Nose: denies: Rhinorrhea / runny nose, Congestion Throat: denies: Sore throat Cardiac: denies: Chest pain / pressure, Palpitations Respiratory: denies: Cough GI: reports: Nausea, Vomiting. 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:  HEENT: Cataracts - Present Medications Home Medications: Ambulatory Orders Medication Instructions Recorded Confirmed Dapagliflozin Propanediol [Farxiga] 10 mg PO DAILY 03/16/17 08/08/21 Ezetimibe/Simvastatin [Vytorin 1 tab PO DAILY 03/16/17 08/08/21 10-10 mg Tablet] glipiZIDE [Glipizide] 10 mg PO BID 03/16/17 08/08/21 metFORMIN [Glucophage] 1,000 mg PO DAILY 03/16/17 08/08/21 Calcium Carbonate [Calcium] 600 mg PO BID 08/04/21 08/08/21 Cholecalciferol [Vitamin D3] 25 mcg PO DAILY 08/04/21 08/08/21 Dulaglutide [Trulicity] 1.5 mg SQ OAW 08/04/21 08/08/21 Ibuprofen [Motrin] 600 mg PO Q6H PRN 08/04/21 08/08/21 Loratadine [Allergy Relief] 10 mg PO DAILY PRN 08/04/21 08/08/21 Omeprazole 20 mg PO DAILY 08/04/21 08/08/21 Pilocarpine HCl 5 mg PO QID 08/04/21 08/08/21 Triamcinolone Acetonide 0.1% 1 applic TOP PRN PRN 08/04/21 08/08/21 [Triamcinolone Acetonide] Zolpidem Tartrate [Ambien] 10 mg PO QPM PRN 08/04/21 08/08/21 Meclizine HCl [Motion Sickness] 25 mg PO Q6H PRN #30 tablet 10/23/21 Ondansetron Odt [Zofran] 4 mg TL Q6H PRN #10 tablet 10/23/21 - Allergies Allergies/Adverse Reactions: Allergies Allergy/AdvReac Type Severity Reaction Status Date / Time codeine [Codeine] Allergy Intermediate Nausea Verified 10/23/21 15:51 oxycodone HCl * [From Tylox] AdvReac Mild Nausea Verified 10/23/21 15:51 - Social History Does the pt smoke?: No Smoking Status: Never smoker Does the pt drink ETOH?: Yes Does the pt have substance abuse?: No - Immunizations Immunizations are current?: No PD ED PE NORMAL - Vitals Vital signs reviewed: Yes - General General: Alert and oriented X 3, No acute distress - HEENT HEENT: PERRL, EOMI, Ears normal, Moist mucous membranes, Pharynx benign - Neck Neck: Supple, no meningeal sign - Cardiac Cardiac: RRR, Strong equal pulses - Respiratory Respiratory: No respiratory distress, Clear bilaterally - Abdomen Abdomen: Soft, Non tender, Non distended - Derm Derm: Warm and dry - Extremities Extremities: No edema, No calf tenderness / cord - Neuro Neuro: Alert and oriented X 3, dining room busser 2-12 intact, No motor deficit, No sensory deficit, Normal speech, Other (Horizontal nystagmus, positive Hallpike to the left) Eye Opening: Spontaneous Motor: Obeys Commands Verbal: Oriented GCS Score: 15 Results - Vitals Vitals: Vital Signs - 24 hr 10/23/21 10/23/21 10/23/21 15:48 15:51 17:43 Temperature 36 C L 36.5 C 36.5 C Heart Rate 69 69 66 Respiratory 16 16 16 Rate Blood Pressure 152/73 H 152/73 H 148/68 H O2 Saturation 98 99 99 Oxygen O2 Source Room air PD MEDICAL DECISION MAKING - ED course Complexity details: reviewed results, re-evaluated patient, considered differential, d/w patient, d/w family ED course: Patient with what appears to be BPPV. Symptoms resolved with Zofran and meclizine. Tolerating p.o. without difficulty. Ambulating well. NIH stroke scale of 0. No indication for emergent neuroimaging. Ambulating without difficulty We will place the patient on meclizine for home and have her follow- up with her doctor for further care. Patient counseled regarding signs and symptoms for which I believe and urgent re-evaluation would be necessary. Patient with good understanding of and agreement to plan and is comfortable going home at this time This document was made in part using voice recognition software. While efforts are made to proofread this document, sound alike and grammatical errors may occur. Departure - Departure Disposition: 01 Home, Self Care Clinical Impression: Vertigo Condition: Good Instructions: ED BPV Vertigo Follow-Up: Chandler hSerman DO [Primary Care Provider] - Within 1 week Prescriptions: Meclizine HCl [Motion Sickness] 25 mg PO Q6H PRN #30 tablet PRN Reason: Dizziness Ondansetron Odt [Zofran] 4 mg TL Q6H PRN #10 tablet PRN Reason: Nausea / Vomiting Comments: Your prescriptions were sent to [facility] in [place]. Use the medication as needed for your vertigo. Please follow-up with your doctor for further care. Return if you worsen. Discharge Date/Time: 10/23/21 17:43
[2021-10-23 17:45] VITALS: BP 148/68
== END 2021-10-23 17:43 | disposition home or self-care (01) ==
LOC: ED 15:45
DX: R42 Dizziness and giddiness (principal); E11.9 Type 2 diabetes mellitus without complications; Z79.84 Long term (current) use of oral hypoglycemic drugs
CPT/HCPCS: 99282; 99283; A9270; Q0162

== ENCOUNTER 2022-01-01 14:34 | Outpatient (CLI) | payer MEDICARE, OTHER ==
--- NOTE | 2022-01-02 09:15 | Mammography Report ---
BILATERAL DIGITAL SCREENING MAMMOGRAM 3D/2D: 01/01/2022 CLINICAL: Routine screening. Comparison is made to exams dated: 12/08/2018 mammogram, 09/06/2016 mammogram, 08/19/2015 mammogram, 08/20 mammogram, 08/04/2014 mammogram, and 06/15/2013 mammogram - [facility]. There are scattered fibroglandular elements in both breasts. No significant masses, calcifications, or other findings are seen in either breast. There has been no significant interval change. IMPRESSION: NEGATIVE There is no mammographic evidence of malignancy. A 1 year screening mammogram is recommended. Based on the Tyrer Cuzick model (a risk assessment model) the patients lifetime risk is 3.8% and her 10 year risk is 2.9%. According to the ACR, ACS, and NCCN guidelines, an annual breast MRI exam donovan g with mammogram is recommended if the patients lifetime risk is 20% or greater. This exam was interpreted at Station ID: [id number]. NOTE: For mammograms, a report in lay terms will be sent to the patient. Approximately 15% of breast malignancies will not be visualized mammographically. In the management of a palpable breast mass, a negative mammogram must not discourage biopsy of a clinically suspicious lesion. Electronically Signed By: Joss Fuentes M.D., jr/prudence:01/01/2022 15:24:16 ACR BI-RADS Category 1: Negative 3341F PARENCHYMAL PATTERN: (A) - The breast(s) demonstrate(s) scattered fibroglandular densities. BI-RADS CATEGORY: (1) - 1 RECOMMENDATION: (ANNUAL) - Recommend routine annual screening mammography. [id number] 1 year screening LATERALITY: (B)
== END 2022-01-01 14:35 | disposition home or self-care (01) ==
LOC: DI.N 14:34
PROVIDERS: ATTEND Family Medicine
DX: Z12.31 Encounter for screening mammogram for malignant neoplasm of breast (principal)

== ENCOUNTER 2022-03-15 12:00 | Outpatient (CLI) | payer MEDICARE, OTHER ==
[2022-03-15 12:44] LABS: BASOPHILS # (AUTO) 0.1 10^3/uL (0.0-0.1); BASOPHILS % (AUTO) 0.9 %; EOSINOPHILS # (AUTO) 0.2 10^3/uL (0.0-0.7); EOSINOPHILS % (AUTO) 3.1 %; HCT - HEMATOCRIT 38.5 % (37.0-47.0); HGB - HEMOGLOBIN 12.8 g/dL (12.0-16.0); LYMPHOCYTES # (AUTO) 2.5 10^3/uL (1.5-3.5); LYMPHOCYTES % (AUTO) 45.8 %; MEAN CORPUSCULAR HEMOGLOBIN 29.5 pg (27.0-31.0); MEAN CORPUSCULAR HGB CONC 33.2 g/dL (32.0-36.0); MEAN CORPUSCULAR VOLUME 88.7 fL (81.0-99.0); MEAN PLATELET VOLUME 8.9 fL (7.9-10.8); MONOCYTES # (AUTO) 0.5 10^3/uL (0.0-1.0); MONOCYTES % (AUTO) 8.8 %; NEUTROPHILS # (AUTO) 2.3 10^3/uL (1.5-6.6); NEUTROPHILS % (AUTO) 41.2 %; PLT - PLATELET COUNT 187 10^3/uL (130-450); RED BLOOD COUNT 4.34 10^6/uL (4.20-5.40); RED CELL DISTRIBUTION WIDTH 12.7 % (12.0-15.0); WHITE BLOOD COUNT 5.5 x10^3/uL (4.8-10.8)
[2022-03-15 13:02] LABS: THYROID STIMULATING HORMONE 2.46 uIU/mL (0.34-5.60)
[2022-03-15 14:10] LABS: ALBUMIN/GLOBULIN RATIO 1.1 (1.0-2.2); ALKALINE PHOSPHATASE 53 IU/L (42-121); ALT ALANINE AMINOTRANSFERASE 13 IU/L (10-60); AST ASPARTATE AMINOTRANSFERASE 27 IU/L (10-42); BILIRUBIN,TOTAL 0.5 mg/dL (0.2-1.0); BUN - BLOOD UREA NITROGEN 21 mg/dL (6-20); CALCIUM 8.9 mg/dL (8.5-10.3); CARBON DIOXIDE - CO2 27 mmol/L (21-32); CHLORIDE 92 mmol/L (101-111); CHOL/HDL RATIO 2.2 (<4.4); CHOLESTEROL 82 mg/dL; CREATININE 0.7 mg/dL (0.4-1.0); GFR - MDRD 82 (>89); GLUCOSE 108 mg/dL (70-100); HDL CHOLESTEROL 37 mg/dL; LDL CHOLESTEROL,CALCULATED 32 mg/dL; LDL/HDL RATIO 0.9 (<4.4); TOTAL PROTEIN 7.6 g/dL (6.7-8.2); TRIGLYCERIDES 67 mg/dL; VLDL CHOLESTEROL 13 mg/dL
[2022-03-15 14:42] LABS: SODIUM 132 mmol/L (135-145)
[2022-03-15 16:08] LABS: MICROALBUM/CREATININE RATIO,UR 23.1 ug/mg (<30.0); MICROALBUMIN,URINE 0.3 mg/dL (0-300.0)
[2022-03-15 16:34] LABS: ESTIMATED AVERAGE GLUCOSE 169 mg/dL (70-100); HEMOGLOBIN A1c% 7.5 % (4.27-6.07)
[2022-03-16 06:10] LABS: HCV AB <0.1 s/co ratio (0.0-0.9)
== END 2022-03-15 12:01 | disposition home or self-care (01) ==
LOC: LAB 12:00
PROVIDERS: ATTEND Internal Medicine
DX: Z00.00 Encounter for general adult medical examination without abnormal findings (principal); E11.9 Type 2 diabetes mellitus without complications; R03.0 Elevated blood-pressure reading, without diagnosis of hypertension; L84 Corns and callosities; K21.9 Gastro-esophageal reflux disease without esophagitis; M19.90 Unspecified osteoarthritis, unspecified site; H60.90 Unspecified otitis externa, unspecified ear; J30.2 Other seasonal allergic rhinitis; M35.00 Sjogren syndrome, unspecified; Z11.59 Encounter for screening for other viral diseases; Z79.899 Other long term (current) drug therapy
CPT/HCPCS: 36415; 80053; 80061; 82043; 82570; 82607; 83036; 83721; 84443; 85025; 86803

== ENCOUNTER 2022-09-21 07:24 | Day surgery (SDC) | payer MEDICARE, OTHER ==
--- NOTE | 2022-09-21 07:51 | ANESTHESIA ---
Pre-Anesthesia VS, & Labs - Diagnosis indigestion - Procedure EGD Height: 5 ft 2 in - NPO >8 hours - Is Patient ?: No Home Medications and Allergies Dapagliflozin Propanediol [Farxiga] 10 mg PO DAILY 03/16/17 Ezetimibe/Simvastatin [Vytorin 10-10 mg Tablet] 1 tab PO DAILY 03/16/17 glipiZIDE [Glipizide] 10 mg PO BID 03/16/17 metFORMIN [Glucophage] 1,000 mg PO DAILY 03/16/17 Calcium Carbonate [Calcium] 600 mg PO BID 08/04/21 Cholecalciferol [Vitamin D3] 25 mcg PO DAILY 08/04/21 Dulaglutide [Trulicity] 1.5 mg SQ OAW 08/04/21 Ibuprofen [Motrin] 600 mg PO Q6H PRN 08/04/21 Loratadine [Allergy Relief] 10 mg PO DAILY PRN 08/04/21 Omeprazole 20 mg PO DAILY 08/04/21 Pilocarpine HCl 5 mg PO QID 08/04/21 Triamcinolone Acetonide 0.1% [Triamcinolone Acetonide] 1 applic TOP PRN PRN 08/04/21 Zolpidem Tartrate [Ambien] 10 mg PO QPM PRN 08/04/21 Allergies/Adverse Reactions: Allergies Allergy/AdvReac Type Severity Reaction Status Date / Time codeine [Codeine] Allergy Intermediate Nausea Verified 10/23/21 15:51 oxycodone HCl * [From Tylox] AdvReac Mild Nausea Verified 10/23/21 15:51 Anes History & Medical History - Anesthetic History Anesthesia Complications: reports: No previous complications - Medical History Cardiovascular: reports: High cholesterol Pulmonary: reports: None, Other Gastrointestinal: reports: GERD, Colon polyps Urinary: reports: None Neuro: reports: None Musculoskeletal: reports: Osteoporosis Endocrine/Autoimmune: reports: Type 2 diabetes Skin: reports: None Smoking Status: Never smoker History of Cancer?: No - Surgical History General: reports: Colonoscopy Eyes Ears Nose Throat (EENT): reports: Cataracts Gynecologic: Exam General: Alert, Oriented x3 Dental: WNL Mouth Opening: Greater than 4 Fingerbreadths Mallampati classification: II Thyromental Distance: greater than 6 cm Respiratory: Lungs clear Cardiovascular: Regular rate Plan Anesthesia Type: Total IV Consent for Procedure(s) Verified and Reviewed: Yes Code Status: Attempt Resuscitation ASA classification: 2-Mild systemic disease Is this case an emergency?: No
[2022-09-21] MEDS ORDERED: LIDOCAINE-MPF 2% 5 ML VIAL ONE (07:55)
[2022-09-21] MEDS ORDERED: PROPOFOL 200 MG/20 ML VIAL IVP ONE (07:55)
[2022-09-21] MEDS ORDERED: LACTATED RINGERS 1,000 ML IV ONE (07:56)
--- NOTE | 2022-09-21 08:37 | HISTORY & PHYSICAL EXAMINATION ---
Chief Complaint - Chief Complaint Chief Complaint: heart burn History of Present Illness - History Obtained From Records Reviewed: yes History obtained from: pt Exam Limitations: none - History of Present Illness HPI Comment/Other: increased heart burn symptoms last few months History - Past Medical History Cardiovascular: reports: High cholesterol Respiratory: reports: None, Other Neuro: reports: None Endocrine/Autoimmune: reports: Type 2 diabetes GI: reports: GERD, Colon polyps GALLERY ASSISTANT: reports: None : reports: None HEENT: reports: Other Psych: reports: Anxiety Musculoskeletal: reports: Osteoporosis Derm: reports: None MRSA Hx?: No - Past Surgical History General: reports: Colonoscopy /GALLERY ASSISTANT: HEENT: reports: Cataracts Meds/Allgy - Home Medications Home Medications: Ambulatory Orders Medication Instructions Recorded Confirmed Dapagliflozin Propanediol [Farxiga] 10 mg PO DAILY 03/16/17 09/21/22 Ezetimibe/Simvastatin [Vytorin 1 tab PO DAILY 03/16/17 09/21/22 10-10 mg Tablet] glipiZIDE [Glipizide] 10 mg PO BID 03/16/17 09/21/22 metFORMIN [Glucophage] 1,000 mg PO DAILY 03/16/17 09/21/22 Calcium Carbonate [Calcium] 600 mg PO BID 08/04/21 09/21/22 Cholecalciferol [Vitamin D3] 25 mcg PO DAILY 08/04/21 09/21/22 Dulaglutide [Trulicity] 1.5 mg SQ OAW 08/04/21 09/21/22 Loratadine [Allergy Relief] 10 mg PO DAILY PRN 08/04/21 09/21/22 Omeprazole 20 mg PO DAILY 08/04/21 09/21/22 Pilocarpine HCl 5 mg PO BID 08/04/21 09/21/22 Zolpidem Tartrate [Ambien] 10 mg PO QPM PRN 08/04/21 09/21/22 - Allergies Allergies/Adverse Reactions: Allergies Allergy/AdvReac Type Severity Reaction Status Date / Time codeine [Codeine] Allergy Intermediate Nausea Verified 10/23/21 15:51 oxycodone HCl * [From Tylox] AdvReac Mild Nausea Verified 10/23/21 15:51 Review of Systems - Other Findings Other Findings: 10 pt ros as above otherwise unremarkable Exam - Vital Signs Reviewed Vital Signs: Yes Vital Signs: Vital Signs x48h Temp Pulse Resp BP Pulse Ox 09/21/22 07:50 36.4 C L 79 18 134/73 H 100 - Physical Exam General Appearance: positive: No acute distress, Alert Eyes Bilateral: positive: PERRL, EOMI ENT: positive: No signs of dehydration Neck: positive: No JVD, Trachea midline Respiratory: positive: No respiratory distress, Breath sounds nml Cardiovascular: positive: Regular rate & rhythm Abdomen: positive: Non-tender, No distention Neurologic/Psychiatric: positive: Oriented x3 Conclusion/Plan - Problem List (1) GERD (gastroesophageal reflux disease) Conclusion/Plan: plan egd. parq held and consent obtained
[2022-09-21] MEDS ORDERED: LACTATED RINGERS 500 ML IV ONE (09:03)
--- NOTE | 2022-09-21 09:15 | ANESTHESIA POST OP EVALUATION ---
Anesthesia Post Eval - Post Anesthesia Eval Vitals: Last Vital Signs Temp 36.7 C 09/21/22 09:05 Pulse 76 09/21/22 09:12 Resp 16 09/21/22 09:12 BP 115/60 09/21/22 09:12 Pulse Ox 98 09/21/22 09:12 O2 Flow Rate CV Function Including HR & BP: Stable Pain Control: Satisfactory Nausea & Vomiting: Negative Mental Status: Baseline Respiratory Status: Airway Patent Hydration Status: Satisfactory Anesthesia Complications: None
[2022-09-21 09:30] VITALS: BP 136/73
== END 2022-09-21 07:25 | disposition home or self-care (01) ==
LOC: SDS 07:24
PROVIDERS: ATTEND Surgery
PROC: 0DB78ZX Excision of Stomach, Pylorus, Via Natural or Artificial Opening Endoscopic, Diagnostic (ICD-10-PCS; 2022-09-21)
PROC: 0DB28ZX Excision of Middle Esophagus, Via Natural or Artificial Opening Endoscopic, Diagnostic (ICD-10-PCS; 2022-09-21)
PROC: 0DB38ZX Excision of Lower Esophagus, Via Natural or Artificial Opening Endoscopic, Diagnostic (ICD-10-PCS; 2022-09-21)
PROC: 0DB98ZX Excision of Duodenum, Via Natural or Artificial Opening Endoscopic, Diagnostic (ICD-10-PCS; principal; 2022-09-21 08:30)
DX: R12 Heartburn (principal); K22.89 Other specified disease of esophagus; K21.9 Gastro-esophageal reflux disease without esophagitis; E11.9 Type 2 diabetes mellitus without complications; Z79.84 Long term (current) use of oral hypoglycemic drugs
CPT/HCPCS: 43239; J7120

== ENCOUNTER 2022-12-04 14:16 | Outpatient (CLI) | payer MEDICARE, OTHER ==
--- NOTE | 2022-12-04 16:12 | MRI Report ---
PROCEDURE: LUMBAR SPINE WO INDICATIONS: BILATERAL LEG PAIN TECHNIQUE: Noncontrast sagittal T1 spin echo and T2 fast echo, sagittal STIR, axial T1 and T2 fast spin echo thr ough the lumbar spine. In cases with scoliosis, additional coronal T2 fast spin echo may be performe d. COMPARISON: None. FINDINGS: Image quality: Excellent. Alignment and Curvature: There is normal bony alignment. Bone Marrow: Marrow is of normal overall signal. No acute vertebral body compression fractures. Spinal Cord: Conus medullaris terminates at the L1 level. Visualized cord demonstrates normal signa l and size. Paraspinous Soft Tissues: No paravertebral masses. T12-L1: Mild disc bulge. No canal stenosis or foraminal stenosis. L1-L2: Mild disc bulge. No canal stenosis or foraminal stenosis. L2-L3: Minimal disc bulge. No canal stenosis or foraminal stenosis. L3-L4: Mild disc bulge. Mild facet hypertrophy. Borderline canal stenosis. No foraminal stenosis. L4-L5: Mild disc bulge. Left foraminal annulus tear plus disc bulge. Facet hypertrophy. Mild canal stenosis. No significant foraminal stenosis. L5-S1: Left paracentral annulus tear subjacent to the left S1 nerve root in the left lateral recess . Mild diffuse disc bulge. Disc material abuts the S1 nerve roots bilaterally. No significant canal s tenosis or foraminal stenosis. IMPRESSION: 1. A left foraminal annulus tear at L4-L5 can be incidental finding, or may potentially result in L4 radicular symptoms. 2. Left paracentral annulus tear. This bulge at L5-S1, can be an incidental finding or may potentiall y result in left or bilateral S1 radiculopathy. 3. Canal stenosis is mild at L4-L5 and borderline at L3-L4. Comment: Suggest clinical correlation for possible associated symptomatology. Reviewed by: Addy Apple MD on 12/04/2022 4:10 PM PDT Approved by: Addy Apple MD on 12/04/2022 4:10 PM PDT Station ID: [id number]
== END 2022-12-04 14:17 | disposition home or self-care (01) ==
LOC: DI 14:16
PROVIDERS: ATTEND Internal Medicine
DX: M51.36 Other intervertebral disc degeneration, lumbar region (principal); M48.061 Spinal stenosis, lumbar region without neurogenic claudication; M47.816 Spondylosis without myelopathy or radiculopathy, lumbar region; M51.37 Other intervertebral disc degeneration, lumbosacral region

== ENCOUNTER 2023-04-15 15:12 | Outpatient (CLI) | payer MEDICARE, OTHER ==
--- NOTE | 2023-04-16 16:21 | Mammography Report ---
BILATERAL DIGITAL SCREENING MAMMOGRAM 3D/2D: 04/15/2023 CLINICAL: Routine screening. Comparison is made to exams dated: 01/01/2022 mammogram, 12/08/2018 mammogram, 09/06/2016 mammogram, 08/19 mammogram, 08/20/2014 mammogram, and 08/04/2014 mammogram - [facility]. There are scattered areas of fibroglandular density in both breasts (category b / 25%-50% glandular t issue). No significant masses, calcifications, or other findings are seen in either breast. IMPRESSION: NEGATIVE There is no mammographic evidence of malignancy. A 1 year screening mammogram is recommended. Based on the Tyrer Cuzick model (a risk assessment model) the patients lifetime risk is 3.6% and her 10 year risk is 3.2%. According to the ACR, ACS, and NCCN guidelines, an annual breast MRI exam donovan g with mammogram is recommended if the patients lifetime risk is 20% or greater. This exam was interpreted at Station ID: [id number]. NOTE: For mammograms, a report in lay terms will be sent to the patient. Approximately 15% of breast malignancies will not be visualized mammographically. In the management of a palpable breast mass, a negative mammogram must not discourage biopsy of a clinically suspicious lesion. Electronically Signed By: Monika santamaria/prudence:04/16/2023 15:50:51 letter sent: No_Letter ACR BI-RADS Category 1: Negative 3341F PARENCHYMAL PATTERN: (A) - The breast(s) demonstrate(s) scattered fibroglandular densities. BI-RADS CATEGORY: (1) - 1 Mammogram [id number] 1 year screening LATERALITY: (B)
== END 2023-04-15 15:13 | disposition home or self-care (01) ==
LOC: DI 15:12
PROVIDERS: ATTEND Internal Medicine
DX: Z12.31 Encounter for screening mammogram for malignant neoplasm of breast (principal)

== ENCOUNTER 2023-10-03 16:00 | Outpatient (CLI) | payer MEDICARE, OTHER ==
--- NOTE | 2023-10-03 22:58 | XRAY Report ---
PROCEDURE: Ankle 3+V LT INDICATIONS: LEFT AKNLE PAIN TECHNIQUE: 3 views of the ankle were acquired. COMPARISON: None. FINDINGS: Bones: No fractures or dislocations. Ankle mortise is normally aligned. No suspicious bony lesions . Plantar calcaneal enthesophyte. Soft tissues: No tibiotalar joint effusion. Achilles tendon appears normal. IMPRESSION: No acute bony abnormality. If pain persists with conservative management, consider further evaluation with cross-sectional imagi ng such as CT or MRI. Reviewed by: Monika Ratliff MD, PhD on 10/03/2023 10:56 PM PDT Approved by: Monika Ratliff MD, PhD on 10/03/2023 10:56 PM PDT Station ID: [id number]
== END 2023-10-03 16:01 | disposition home or self-care (01) ==
LOC: DI 16:00
PROVIDERS: ATTEND Internal Medicine
DX: M25.572 Pain in left ankle and joints of left foot (principal)

== ENCOUNTER 2024-04-01 12:30 | Outpatient (CLI) | payer MEDICARE, OTHER | END 2024-04-01 12:45 | disposition home or self-care (01) | LOC: LAB.N 12:30 | PROVIDERS: ATTEND Nurse Practitioner | DX: N39.0 Urinary tract infection, site not specified (principal) | CPT/HCPCS: 82962; 87086 ==